=== PATIENT | female | born 2000 | race Caucasian/White ===

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

== ENCOUNTER 2021-06-25 08:00 | Outpatient (CLI) | payer MEDICAID ==
--- NOTE | 2021-06-25 14:16 | XRAY Report ---
PROCEDURE: Thoracic Spine 2 View INDICATIONS: THORACIC MYOFASCIAL PAIN SYNDROME TECHNIQUE: 3 views of the thoracic spine were acquired. COMPARISON: None. FINDINGS: Bones: No fractures or dislocations. Trace predominantly dextroconvex curvature of the midthoracic s pine. No suspicious bony lesions. 12 pairs of ribs are noted, and appear intact where visualized. Soft tissues: No paravertebral stripe thickening. IMPRESSION: No acute osseous abnormality. Trace dextroconvex curvature of the midthoracic spine. Reviewed by: Jaxson Mcguire MD on 06/25/2021 2:14 PM PST Approved by: Jaxson Mcguire MD on 06/25/2021 2:14 PM PST Station ID: [id number]
== END 2021-06-25 23:59 ==
LOC: DI.N 08:00
PROVIDERS: ATTEND Family Medicine
DX: M79.18 Myalgia, other site (principal)

== ENCOUNTER 2021-06-25 13:31 | Outpatient (CLI) | payer MEDICAID | END 2021-06-25 13:32 | disposition home or self-care (01) | LOC: DI.N 13:31 | PROVIDERS: ATTEND Family Medicine | DX: Z53.9 Procedure and treatment not carried out, unspecified reason (principal) ==

== ENCOUNTER 2022-05-23 15:12 | Outpatient (CLI) | payer MEDICAID ==
[2022-05-23 21:11] LABS: BACTERIAL VAGINOSIS DNA NEGATIVE (NEGATIVE); CANDIDA GLABRATA DNA NEGATIVE (NEGATIVE); CANDIDA GROUP DNA NEGATIVE (NEGATIVE); CANDIDA KRUSEI DNA NEGATIVE (NEGATIVE); TRICHOMONAS VAGINALIS DNA NEGATIVE (NEGATIVE)
== END 2022-05-23 15:13 | disposition home or self-care (01) ==
LOC: LAB.WC 15:12
PROVIDERS: ATTEND Nurse Practitioner
DX: R10.9 Unspecified abdominal pain (principal); Z11.3 Encounter for screening for infections with a predominantly sexual mode of transmission
CPT/HCPCS: 81514; 87491; 87591; 87661

== ENCOUNTER 2022-06-14 19:38 | Outpatient (CLI) | payer MEDICAID ==
--- NOTE | 2022-06-15 16:48 | Ultrasound Report ---
PROCEDURE: Pelvic w/Transvaginal INDICATIONS: ABD PAIN TECHNIQUE: Real-time scanning was performed of the pelvic organs, with image documentation. Additional endovagi nal scanning was necessary due to incomplete visualization of the adnexal and endometrial structures by transabdominal scanning. COMPARISON: None. FINDINGS: Uterus: Uterus is anteverted and normal in size at 7.0 x 3.1 x 3.6 cm. The myometrium is homogeneou s. The endometrium measures 7 mm in combined thickness. No myometrial masses. Ovaries: The right ovary measures 2.4 x 1.8 x 2.4 cm, with a calculated ovarian volume of 5.4 cc. T he left ovary measures 2.1 x 1.3 x 2.4 cm, with a calculated ovarian volume of 3.3 cc. The ovaries h ave a normal sonographic appearance. Less than 12 follicles can be seen in each ovary. No adnexal m asses are seen. Other: No pathologic free abdominal or pelvic fluid. Normal vascularity in each ovary. IMPRESSION: 1. Normal pelvic ultrasound. Reviewed by: Elaina Rosales MD on 06/15/2022 4:47 PM PST Approved by: Elaina Rosales MD on 06/15/2022 4:47 PM PST Station ID: [id number]
== END 2022-06-14 19:39 | disposition home or self-care (01) ==
LOC: DI 19:38
PROVIDERS: ATTEND Nurse Practitioner
DX: R10.9 Unspecified abdominal pain (principal)

== ENCOUNTER 2022-07-11 16:09 | Outpatient (CLI) | payer MEDICAID ==
[2022-07-11 16:21] LABS: HCT - HEMATOCRIT 41.4 % (37.0-47.0); HGB - HEMOGLOBIN 13.7 g/dL (12.0-16.0); MEAN CORPUSCULAR HEMOGLOBIN 27.4 pg (27.0-31.0); MEAN CORPUSCULAR HGB CONC 33.1 g/dL (32.0-36.0); MEAN CORPUSCULAR VOLUME 82.8 fL (81.0-99.0); MEAN PLATELET VOLUME 8.4 fL (7.9-10.8); RED CELL DISTRIBUTION WIDTH 13.2 % (12.0-15.0)
[2022-07-11 16:52] LABS: THYROID STIMULATING HORMONE 0.88 uIU/mL (0.34-5.60)
[2022-07-11 16:54] LABS: FREE T4 (FREE THYROXINE) 0.73 ng/dL (0.58-1.64)
[2022-07-11 16:58] LABS: FERRITIN 61.2 ng/mL (11.0-306.8)
== END 2022-07-11 16:10 | disposition home or self-care (01) ==
LOC: LAB 16:09
PROVIDERS: ATTEND Nurse Practitioner
DX: R25.1 Tremor, unspecified (principal)
CPT/HCPCS: 36415; 82728; 84439; 84443; 85027

== ENCOUNTER 2022-11-25 17:26 | Emergency (ER) | payer MEDICAID ==
[2022-11-25 18:00] LABS: BASOPHILS % (AUTO) 0.4 %; EOSINOPHILS # (AUTO) 0.2 10^3/uL (0.0-0.7); EOSINOPHILS % (AUTO) 2.3 %; HCT - HEMATOCRIT 41.3 % (37.0-47.0); HGB - HEMOGLOBIN 13.9 g/dL (12.0-16.0); LYMPHOCYTES # (AUTO) 2.2 10^3/uL (1.5-3.5); MEAN CORPUSCULAR HEMOGLOBIN 27.6 pg (27.0-31.0); MEAN CORPUSCULAR HGB CONC 33.7 g/dL (32.0-36.0); MEAN CORPUSCULAR VOLUME 82.1 fL (81.0-99.0); MEAN PLATELET VOLUME 8.6 fL (7.9-10.8); MONOCYTES # (AUTO) 0.6 10^3/uL (0.0-1.0); MONOCYTES % (AUTO) 5.8 %; NEUTROPHILS % (AUTO) 69.3 %; PLT - PLATELET COUNT 412 10^3/uL (130-450); RED BLOOD COUNT 5.03 10^6/uL (4.20-5.40); RED CELL DISTRIBUTION WIDTH 12.9 % (12.0-15.0); WHITE BLOOD COUNT 10.1 x10^3/uL (4.8-10.8)
[2022-11-25 18:23] LABS: ALBUMIN 4.3 g/dL (3.2-5.5); ALBUMIN/GLOBULIN RATIO 1.2 (1.0-2.2); BILIRUBIN,TOTAL 0.4 mg/dL (0.2-1.0); CALCIUM 9.4 mg/dL (8.5-10.3); CREATININE 0.9 mg/dL (0.6-1.3); POTASSIUM 3.6 mmol/L (3.5-4.5); TOTAL PROTEIN 7.8 g/dL (6.4-8.9)
[2022-11-25 18:28] LABS: BILIRUBIN,URINE NEGATIVE (NEGATIVE); GLUCOSE, URINE (UA) NEGATIVE (NEGATIVE); KETONES,URINE (UA) NEGATIVE (NEGATIVE); LEUKOCYTE ESTERASE, URINE NEGATIVE (NEGATIVE); NITRITE,URINE NEGATIVE (NEGATIVE); OCCULT BLOOD,URINE NEGATIVE (NEGATIVE); PH,URINE 5.5 PH (5.0-7.5); PROTEIN,URINE NEGATIVE (NEGATIVE); UROBILINOGEN,URINE 0.2 (NORMAL) E.U./dL (NORMAL)
[2022-11-25 18:29] LABS: CLARITY,URINE CLEAR (CLEAR)
[2022-11-25 18:30] LABS: HCG UR QUAL NEGATIVE
[2022-11-25] MEDS ORDERED: SODIUM CHLORIDE 0.9% 2,000 ML IV STA (19:07)
--- NOTE | 2022-11-25 19:08 | ED Physician Documentation ---
History of Present Illness - Stated complaint Stated Complaint: DIZZY/NAUSEA - Chief complaint Chief Complaint: General - History obtained from History obtained from: Patient - History of Present Illness Timing: How many days ago (Several days) Pain level max: 3 Pain level now: 2 - Additonal information Additional information: Patient is a 22-year-old female who presents to the emergency department complaining of feeling mildly lightheaded and dizzy over the past few days intermittently. She also feels slightly shaky and nauseated. She states that she has not had a bowel movement for 1 to 2 days. Had some mild back and abdominal pain earlier but this is since resolved. Does not believe she is . She also complains of some mild upper chest/upper breast tenderness. No swelling to the breast. No erythema. No trauma. 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: 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 : None HEENT: None Psych: None Musculoskeletal: None Derm: None - Past Surgical History Past Surgical History: No - Present Medications Home Medications: Ambulatory Orders Medication Instructions Recorded Confirmed Norethindrone-E.estradiol-Iron 1 each PO DAILY 11/25/22 11/25/22 [Collins 24 Fe 1 mg-20 Mcg Tablet] - Allergies Allergies/Adverse Reactions: Allergies Allergy/AdvReac Type Severity Reaction Status Date / Time bismuth subsalicylate Allergy Nausea Verified 11/25/22 17:38 [From Pepto-Bismol] red dye Allergy Nausea Verified 11/25/22 17:38 - Social History Does the pt smoke?: No Smoking Status: Never smoker Does the pt drink ETOH?: No Does the pt have substance abuse?: No - Immunizations Immunizations are current?: Yes - POLST Patient has POLST: No PD ED PE NORMAL - Vitals Vital signs reviewed: Yes - General General: Alert and oriented X 3, No acute distress - HEENT HEENT: PERRL, Ears normal, Moist mucous membranes, Pharynx benign - Neck Neck: Supple, no meningeal sign - Cardiac Cardiac: RRR, No murmur, Strong equal pulses - Respiratory Respiratory: No respiratory distress, Clear bilaterally, Other (Mild chest wall tenderness in the upper chest. Reproduces the pain she is feeling. No crepitus. No skin changes) - Abdomen Abdomen: Normal bowel sounds, Soft, Non tender, Non distended - Back Back: No CVA TTP, No spinal TTP - Derm Derm: Warm and dry, No rash - Extremities Extremities: No edema, No calf tenderness / cord - Neuro Neuro: Alert and oriented X 3, gas engine performance engineer 2-12 intact, No motor deficit, No sensory deficit, Normal speech Eye Opening: Spontaneous Motor: Obeys Commands Verbal: Oriented GCS Score: 15 - Psych Psych: Normal mood, Normal affect Results - Vitals Vitals: Vital Signs - 24 hr 11/25/22 11/25/22 11/25/22 17:32 18:46 20:14 Temperature 98.8 C H 36.8 C 36.7 C Heart Rate 98 67 Respiratory 15 20 Rate Blood Pressure 127/78 114/72 O2 Saturation 98 100 Oxygen O2 Source Room air - Labs Labs: Laboratory Tests 11/25/22 11/25/22 11/25/22 17:55 17:55 18:18 WBC 10.1 RBC 5.03 Hgb 13.9 Hct 41.3 MCV 82.1 MCH 27.6 MCHC 33.7 RDW 12.9 Plt Count 412 MPV 8.6 Neut # (Auto) 7.0 H Lymph # (Auto) 2.2 [place] # (Auto) 0.6 Eos # (Auto) 0.2 Baso # (Auto) 0.0 Absolute Nucleated RBC 0.00 Nucleated RBC % 0.0 Sodium 138 Potassium 3.6 Chloride 104 Carbon Dioxide 28 Anion Gap 6.0 BUN 20 Creatinine 0.9 Estimated GFR (MDRD) 79 L Glucose 95 Calcium 9.4 Total Bilirubin 0.4 AST 12 ALT 12 Alkaline Phosphatase 45 Total Protein 7.8 Albumin 4.3 Globulin 3.5 Albumin/Globulin Ratio 1.2 Lipase 44 Urine Color YELLOW Urine Clarity CLEAR Urine pH 5.5 Ur Specific [place] >=1.030 H Urine Protein NEGATIVE Urine Glucose (UA) NEGATIVE Urine Ketones NEGATIVE Urine Occult Blood NEGATIVE Urine Nitrite NEGATIVE Urine Bilirubin NEGATIVE Urine Urobilinogen 0.2 (NORMAL) Ur Leukocyte Esterase NEGATIVE Ur Microscopic Review NOT INDICATED Urine Culture Comments NOT INDICATED Urine HCG, Qual NEGATIVE PD Medical Decision Making - ED course Complexity details: reviewed results, re-evaluated patient, considered shannon chandler, d/w patient ED course: Patient with a multitude of symptoms, no significant lab abnormalities other than concentrated urine. Her dizziness and lightheadedness resolved with IV fluid administration. Ambulating without difficulty. She has been constipated as well, likely that fluids will help this as well. Abdomen is soft, nontender nondistended on serial exam. hCG is negative. Normal examination of the ears and the tympanic membranes. She does have some upper chest wall tenderness, but no overlying skin changes. No CVA tenderness. Possible early viral syndrome? She refuses a respiratory PCR here. Patient is very well-appearing, nontoxic. Afebrile. No hypoxia. No respiratory distress. We will have her follow-up with her doctor for further care and return if she worsens. Patient counseled regarding signs and symptoms for which I believe and urgent re-evaluation would be necessary. Patient with good understanding of and agreement to plan and is comfortable going home at this time This document was made in part using voice recognition software. While efforts are made to proofread this document, sound alike and grammatical errors may occu r. Departure - Departure Disposition: 01 Home, Self Care Clinical Impression: Dehydration Condition: Good Instructions: ED Dehydration Follow-Up: your,doctor in 1 week [Other] Comments: Please follow-up with your doctor for further care. Please make sure you are drinking plenty of fluids at home. You did appear dehydrated here today. Your laboratory testing does not show any other significant abnormalities. Forms: PCP List Discharge Date/Time: 11/25/22 20:23
[2022-11-25 20:19] VITALS: BP 114/72
== END 2022-11-25 20:23 | disposition home or self-care (01) ==
LOC: ED 17:26
DX: E86.0 Dehydration (principal)
CPT/HCPCS: 36415; 80053; 81001; 81003; 81025; 83690; 85025; 87086; 96360; 99283

== ENCOUNTER 2023-06-25 13:59 | Outpatient (CLI) | payer MEDICAID | END 2023-06-25 14:00 | disposition home or self-care (01) | LOC: LAB.N 13:59 | PROVIDERS: ATTEND Nurse Practitioner | DX: Z01.83 Encounter for blood typing (principal) | CPT/HCPCS: 86900; 86901 ==

== ENCOUNTER 2023-07-22 17:16 | Emergency (ER) | payer MEDICAID ==
[2023-07-22 17:29] VITALS: O2SAT 100
--- NOTE | 2023-07-22 19:30 | ED Physician Documentation ---
History of Present Illness - Stated complaint Stated Complaint: UPPER BACK PX - Chief complaint Chief Complaint: Back Pain - Additonal information Additional information: 23-year-old female presents emergency department for chronic upper back pain. Patient says this right upper back pain has been on and off occurring for years now. She says that the pain today has changed because she is now feeling when she takes a deep breath in. She said that she has been seen by multiple providers for this as well as had multiple different imaging completed and no one has been able to tell her what this pain is from. She has had no injuries or trauma to the upper back area no skin changes to the upper back area. No shortness of breath no chest pain. PD PAST MEDICAL HISTORY - Past Medical History Cardiovascular: None Respiratory: None Neuro: None Endocrine/Autoimmune: None GI: None EVP STRATEGY: None : None HEENT: None Psych: None Musculoskeletal: None Derm: None - Past Surgical History Past Surgical History: No - Present Medications Home Medications: Ambulatory Orders Medication Instructions Recorded Confirmed Norethindrone-E.estradiol-Iron 1 each PO DAILY 11/25/22 07/22/23 [Collins 24 Fe 1 mg-20 Mcg Tablet] - Allergies Allergies/Adverse Reactions: Allergies Allergy/AdvReac Type Severity Reaction Status Date / Time bismuth subsalicylate Allergy Nausea Verified 07/22/23 17:28 [From Pepto-Bismol] red dye Allergy Nausea Verified 07/22/23 17:28 - Social History Does the pt smoke?: No Smoking Status: Never smoker Does the pt drink ETOH?: No Does the pt have substance abuse?: No - Immunizations Immunizations are current?: Yes - POLST Patient has POLST: No PD ED PE NORMAL - Vitals Vital signs reviewed: Yes - General General: Alert and oriented X 3, No acute distress, Well developed/nourished - Free text exam Free text exam: Neck and back are without deformity, external skin changes, or signs of trauma. Curvature of the cervical, thoracic, and lumbar spine are within normal limits. Bony features of the shoulders and hips are of equal height bilaterally. Posture is upright, gait is smooth, steady, and within normal limits. No tenderness noted on palpation of the spinous processes. Spinous processes are midline. Cervical, thoracic, and lumbar paraspinal muscles are not tender and are without spasm. No discomfort is noted with flexion, extension, and [id number] rotation of the cervical spine, full range of motion is noted. Full range of motion including flexion, extension, and [id number] rotation of the thoracic and lumbar spine are noted and without discomfort. Straight leg raise test is negative bilaterally. Sensation to the upper and lower extremities is normal bilaterally. No clonus is noted. Landscape Specialist strength is normal bilaterally. Dorsi/plantar flexion is normal bilaterally. Results - Vitals Vitals: Vital Signs - 24 hr 07/22/23 07/22/23 17:25 19:46 Temperature 36.4 C L 36.5 C Heart Rate 109 H 88 Respiratory 16 16 Rate Blood Pressure 142/92 H 128/88 H O2 Saturation 100 100 Oxygen O2 Source Room air - Rads (name of study) Chest x-ray Relevant Findings:: Final report received, EMP independent interpretation of test, Other (No acute abnormalities no cardiopulmonary abnormalities) PD Medical Decision Making - ED course ED course: 23-year-old female presents emergency department for right upper back pain. What she describes sounds most likely due to a muscle knot. X-rays are complete and are found to be unremarkable no bony abnormalities. She has not taken any Tylenol ibuprofen prior to presenting to the emergency department. She is given Tylenol and Profen here in does report some alleviation of symptoms. Patient told to follow-up with primary care provider and consider doing some acupuncture therapy to help with the fascia tension that she is experiencing in her right upper back. All questions answered no further emergent workup indicated at this time patient is safe for discharge. Departure - Departure Disposition: 01 Home, Self Care Clinical Impression: Upper back pain Instructions: Back Pain Relieve Comments: Thank you for trusting us with your care. I believe that the symptoms you are experiencing are due to a muscle knot. As we discussed I would recommend following up with either massage therapist or double end tenoner setter or even the both to help with working this not out. You can take Tylenol and ibuprofen for any pain and discomfort. You can take 600 mg of ibuprofen every 6 hours and 650 mg of Tylenol every 6 hours. I would also encourage you to alternate between 20 minutes of ice 20 minutes of heat to help with the pain and discomfort. Please follow with your primary care provider as needed for this. Discharge Date/Time: 07/22/23 19:46
--- NOTE | 2023-07-22 19:32 | XRAY Report ---
PROCEDURE: Chest 1V INDICATIONS: thoracic pain/SOA TECHNIQUE: One view of the chest was acquired. COMPARISON: None. FINDINGS: Surgical changes and devices: None. Lungs and pleura: No pleural effusions or pneumothorax. Lungs are clear. Mediastinum: Mediastinal contours appear normal. Heart size is normal. Bones and chest wall: No suspicious bony lesions. Overlying soft tissues appear unremarkable. IMPRESSION: No acute cardiopulmonary process. Reviewed by: Jaxson Mcguire MD on 07/22/2023 7:30 PM PDT Approved by: Jaxson Mcguire MD on 07/22/2023 7:30 PM PDT Station ID: [id number]
[2023-07-22] MEDS: IBUPROFEN 600 MG TABLET PO STA (19:43)
[2023-07-22] MEDS: ACETAMINOPHEN 325 MG TABLET PO STA (19:43)
[2023-07-22 19:55] VITALS: BP 128/88
== END 2023-07-22 19:46 | disposition home or self-care (01) ==
LOC: ED 17:16
DX: M54.6 Pain in thoracic spine (principal)
CPT/HCPCS: 71045; 99283; A9270